=== PATIENT | female | born 1985 | race African-American/Black ===

== ENCOUNTER 2018-05-31 10:59 | Inpatient (IN) ==
[2018-05-31] MEDS ORDERED: SENOKOT PO PRN (12:21)
[2018-05-31] MEDS ORDERED: ZOFRAN ODT PO PRN (12:21)
[2018-05-31] MEDS ORDERED: MAALOX PLUS LIQUID PO PRN (12:21)
[2018-05-31] MEDS ORDERED: IMODIUM PO PRN (12:21)
[2018-05-31] MEDS ORDERED: D5W 1,000 ML IV PRN (12:21)
[2018-05-31] MEDS ORDERED: ZOFRAN IV PRN (12:21)
[2018-05-31] MEDS ORDERED: TUBERSOL ID ONE (12:21)
[2018-05-31] MEDS ORDERED: TYLENOL PO PRN (12:21)
[2018-05-31] MEDS ORDERED: PHENOBARBITAL IV PRN (12:21)
[2018-05-31] MEDS ORDERED: DULCOLAX PR PRN (12:21)
[2018-05-31] MEDS ORDERED: LIBRIUM PO PRN (12:21)
[2018-05-31] MEDS ORDERED: BENTYL PO PRN (12:21)
[2018-05-31] MEDS ORDERED: MOTRIN PO PRN (12:21)
[2018-05-31] MEDS ORDERED: SINEMET 25/100 PO PRN (12:21)
[2018-05-31] MEDS ORDERED: ATARAX PO PRN (12:21)
[2018-05-31 13:02] LABS: UR AMPHETAMINES QUAL NONE DETECTED (NONE DETECT); UR BARBITUATES QUAL NONE DETECTED (NONE DETECT); UR BENZODIAZEPIN QUAL NONE DETECTED (NONE DETECT); UR CANNABINOIDS QUAL NONE DETECTED (NONE DETECT); UR COCAINE QUAL NONE DETECTED (NONE DETECT); UR METHADONE QUAL NONE DETECTED (NONE DETECT); UR METHAMPHETAMINE QUAL NONE DETECTED (NONE DETECT); UR OPIATES QUAL PRESUMPTIVE POSITIVE (NONE DETECT); UR OXYCODONE QUAL PRESUMPTIVE POSITIVE (NONE DETECT); UR PCP QUAL NONE DETECTED (NONE DETECT); UR PROPOXYPHENE QUAL NONE DETECTED (NONE DETECT); UR TCA QUAL NONE DETECTED (NONE DETECT)
[2018-05-31 13:19] LABS: MCH 30.4 PG (27-31); MCHC 34.2 g/dL (33-37); MPV 9.6 FL (7.4-10.4); RBC 4.27 XMIL (4.2-5.4); RDW 12.8 % (11.5-14.5); WBC 6.68 X1000 (4.8-10.8)
[2018-05-31 13:39] LABS: INR 0.96; PROTIME 13.3 Seconds (11.0-16.0)
[2018-05-31 13:52] LABS: AMYLASE 46 U/L (20-200); LIPASE 14 U/L (13-60)
[2018-05-31 13:59] LABS: AGAP 13; ALBUMIN 4.2 g/dL (3.5-5.0); ALKALINE PHOSPHATASE 64 U/L (32-104); BUN 8 mg/dL (8-22); CALCIUM 9.4 mg/dL (8.8-10.2); CHLORIDE 103 mmol/L (98-107); COSMO 276; CREATININE 0.5 mg/dL (0.5-0.9); ESTIMATED GFR > 60; GLUCOSE 95 mg/dL (70-104); GOT 9 U/L (10-30); GPT 5 U/L (10-36); POTASSIUM 3.9 mmol/L (3.5-5.1); SODIUM 139 mmol/L (136-145); TCO2 23 mmol/L (25-35); TOTAL PROTEIN 7.4 g/dL (6.3-8.3)
[2018-05-31] MEDS: ROBAXIN PO PRN (14:33)
[2018-05-31] MEDS: SUBOXONE 2 MG/0.5 MG FILM SL SCH (17:58)
[2018-05-31] MEDS: SEROQUEL PO PRN (20:44)
[2018-05-31] MEDS: NICODERM PATCH TD PRN (20:49)
[2018-05-31] MEDS: DESYREL PO PRN (22:13)
[2018-06-01] MEDS: SUBOXONE 2 MG/0.5 MG FILM SL SCH ×2 (06:23→18:20)
[2018-06-01] MEDS: PROTONIX PO SCH (06:23)
[2018-06-01] MEDS: FOLIC ACID PO SCH (08:37)
[2018-06-01] MEDS: THERA M PLUS PO SCH (08:37)
[2018-06-01] MEDS: VITAMIN B-1 PO SCH (08:38)
[2018-06-01] MEDS: ROBAXIN PO PRN ×2 (08:44→18:26)
--- NOTE | 2018-06-01 10:47 | PROGRESS NOTE ---
DATE: 05/31/2018 SUBJECTIVE: The patient notes that she does not feel well this morning, and still having lots of muscle aches and myalgias. Denies any tremors or paresthesias. PHYSICAL EXAMINATION: Vital Signs: Temperature 98, pulse 78, respiratory 22, and BP 147/90. General: Patient is somewhat ill-appearing. She is awake, alert, and oriented. She is in no current respiratory distress. HEENT: Normocephalic and atraumatic. HIMANSHU. Neck: Supple. No JVD. CARDIOVASCULAR: Regular rate. Chest: Clear. Abdomen: Soft. Extremities: Moves all extremities. Neurologic: No focal changes. Skin: Warm and dry. No rashes. ASSESSMENT: 1. Nausea and vomiting. 2. Abdominal pain. 3. Myalgias. 4. Paresthesias. 5. Paroxysmal sweating. 6. Opiate abuse withdrawal and stabilization. PLAN: We will continue counseling. We will continue weaning Suboxone. Patient unfortunately has twice been admitted and discharged with a prescription. She has failed to have any followup. Discussed with her that at this point, we will not discharge her home with a prescription. We will stabilize her, and assist in her weaning process. She will need to follow up outpatient with primary care of her choice if she desires to stay on Suboxone. cc: Tarun Hidalgo MD
--- NOTE | 2018-06-01 13:14 | HISTORY AND PHYSICAL ---
CHIEF COMPLAINT: Nausea and vomiting. HISTORY OF PRESENT ILLNESS: The patient is a 32-year-old female who presented to [facility] secondary to nausea, vomiting, abdominal pain, tremors, and myalgias. She states that she has been abusing opiates again. SOCIAL HISTORY: The patient is single. She is unemployed. Lives at home in [place]. PAST MEDICAL HISTORY: Positive for polysubstance use and abuse. REVIEW OF SYSTEMS: The patient notes that she has nausea, vomiting, abdominal pain, myalgias, frequent changes in temperature, hot and cold chills. Feels as though her skin is crawling. Frequently jittery, nervous, unable to sit still, has frequent muscle spasms and tremors. Denies headaches, blurred vision, change in vision, denies any focalized numbness, tingling, weakness. Denies chest pain or palpitations. Denies any fevers or chills. PHYSICAL EXAMINATION: VITAL SIGNS: Reviewed. GENERAL: She is awake and alert. She is in no current distress. HEENT: Normocephalic. NECK: Supple. CARDIOVASCULAR: Regular rate. CHEST: Clear. ABDOMEN: Soft. EXTREMITIES: Moves all extremities. ASSESSMENT: 1. Nausea and vomiting. 2. Abdominal pain. 3. Myalgias. 4. Paresthesias. 5. Paroxysmal sweating. 6. Opiate abuse, withdrawal and stabilization. PLAN: We will continue the patient in the hospital. We will place her on Suboxone and we will wean down. Unfortunately, the patient has been discharged previously with a prescription and has never followed up. Therefore, she will not be discharged with a prescription at this time. However, will need to follow up with her primary [facility] for this prescription outpatient. cc: Tarun Hidalgo MD
[2018-06-01 17:26] LABS: URINE SOURCE VOIDED
[2018-06-01 17:52] LABS: BILIRUBIN URINE NEGATIVE (NEGATIVE); BLOOD URINE NEGATIVE (NEGATIVE); CLARITY VERY CLOUDY (CLEAR); COLOR AMBER; GLUCOSE URINE NEGATIVE (NEGATIVE); KETONE URINE NEGATIVE (NEGATIVE); LEUKOCYTES URINE TRACE (NEGATIVE); NITRITE URINE POSITIVE (NEGATIVE); PROTEIN URINE TRACE mg/dL (NEGATIVE); SP GRAVITY URINE 1.015; UROBILINOGEN URINE 1 mg/dL
[2018-06-01 18:01] LABS: URINE BACTERIA 4+ /HFP; URINE CAST NONE SEEN /LPF; URINE CRYSTAL NONE SEEN /HPF; URINE EPITHELIAL CELLS >10 /HPF (<10); URINE WBC <10 /HPF (<10); URINE YEAST NONE SEEN /HPF
[2018-06-01] MEDS: SEROQUEL PO PRN (21:32)
[2018-06-01] MEDS: NICODERM PATCH TD PRN (21:32)
[2018-06-02] MEDS: PROTONIX PO SCH (06:19)
[2018-06-02] MEDS: SUBOXONE 2 MG/0.5 MG FILM SL SCH ×2 (06:19→17:07)
[2018-06-02] MEDS: FOLIC ACID PO SCH (08:21)
[2018-06-02] MEDS: VITAMIN B-1 PO SCH (08:21)
[2018-06-02] MEDS: THERA M PLUS PO SCH (08:22)
--- NOTE | 2018-06-02 12:49 | PROGRESS NOTE ---
DATE: 06/02/2018 SUBJECTIVE: Patient notes that she is having significant withdrawal symptoms today. States that originally she thought she would go home the last time without Suboxone and she weaned off rapidly at home but her symptoms came back and she started reusing. She would like to go home on Suboxone this time. OBJECTIVE: Vital Signs: Reviewed and stable. General: She is awake, alert. She is in no current respiratory distress. HEENT: Normocephalic. Neck: Supple. Cardiovascular: Regular rate. No murmurs. Chest: Clear and nonlabored. Abdomen: Soft. Extremities: Moves all extremities. ASSESSMENT: 1. Nausea and vomiting. 2. Abdominal pain. 3. Myalgias. 4. Paresthesias. 5. Opiate abuse, withdrawal, and admit for stabilization. PLAN: We will continue the patient in the hospital. Continue to attempt to wean Subutex, Suboxone as tolerated. Further orders as needed. cc: Tarun Hidalgo MD
[2018-06-02] MEDS: SEPTRA DS PO SCH (14:27)
[2018-06-02] MEDS: ROBAXIN PO PRN (14:30)
[2018-06-02] MEDS: SEROQUEL PO PRN (20:37)
[2018-06-02] MEDS: DESYREL PO PRN (21:24)
[2018-06-03] MEDS: PROTONIX PO SCH (06:49)
[2018-06-03] MEDS: SUBOXONE 2 MG/0.5 MG FILM SL SCH (06:49)
[2018-06-03 07:26] VITALS: BP 143/97
[2018-06-03] MEDS ORDERED: SUBUTEX SL ONE (08:25)
[2018-06-03] MEDS: THERA M PLUS PO SCH (09:40)
[2018-06-03] MEDS: VITAMIN B-1 PO SCH (09:40)
[2018-06-03] MEDS: FOLIC ACID PO SCH (09:40)
[2018-06-03] MEDS: SEPTRA DS PO SCH (09:40)
--- NOTE | 2018-06-04 04:29 | DISCHARGE SUMMARY ---
ADMISSION DATE: 05/31/2018 DISCHARGE DATE: 06/03/2018 DISCHARGE DIAGNOSES: 1. Nausea and vomiting. 2. Abdominal pain. 3. Myalgias. 4. Paresthesias. 5. Paroxysmal sweating. 6. Opiate abuse withdrawal and stabilization. 7. Noncompliance. CONSULTATIONS: None. PROCEDURES: None. BRIEF HOSPITAL COURSE: Patient is a 32-year-old female who presented to [facility]. She was treated in the usual fashion and placed on Suboxone. We continued to wean throughout the hospital stay. Patient on discharge notes that she is still having some withdrawal symptoms but overall is improved. DISPOSITION: We will discharge patient home. We will not discharge her home with Suboxone prescription as she has not followed up out of time with the 2 previous prescriptions. We will continue to encourage her to follow up outpatient with primary care of her choice. cc: Tarun Hidalgo MD
== END 2018-06-03 11:15 | disposition home or self-care (01) | DRG 897 ==
LOC: P.MEDSURG 11:21
PROVIDERS: ADMIT Family Medicine; ATTEND Family Medicine
CPT/HCPCS: 80053; 80104; 80301; 80305; 80307; 80320; 81001; 82055; 82150; 83690; 84703; 85027; 85610; 86580; 87077; 87088; 87186; A9270; G0431; G0434; G0477; G0480; G6040